=== PATIENT | male | born 1960 ===

== ENCOUNTER 2018-10-05 10:55 | Emergency (ER) | payer MEDICAID ==
[~2018-10-05] VITALS: Ht 177.8 cm; Wt 113.6 kg
[2018-10-05 10:58] VITALS: TEMP 97.4
[2018-10-05] MEDS ORDERED: COZAAR 25MG25 MG/TAB PO (11:31)
[2018-10-05] MEDS ORDERED: SYNTHROID0.075 MG/T PO (11:32)
[2018-10-05] MEDS ORDERED: PROZAC 20MG20 MG PO (11:32)
[2018-10-05 11:36] LABS: BASO # 0.1 (0.0-0.2); BASO % 0.7 % (0.0-2.0); EOS # 0.2 (0.0-0.7); GRAN % 68.7 % (42.2-75.2); HEMATOCRIT 42.4 % (42.0-52.0); HEMOGLOBIN 13.7 g/dl (13.5-18.0); LYMPH # 2.3 (1.2-3.4); LYMPH % 19.7 % (20.0-51.0); MEAN CELL VOLUME 86 fl (80.0-100.0); MEAN CORPUSCULAR HEMOGLOBIN 28 pg (27.0-31.0); MEAN CORPUSCULAR HGB CONC 32 g/dl (33.0-37.0); MEAN PLATELET VOLUME 10.6 fl (7.4-10.4); MONO % 8.2 % (1.7-9.3); PLATELET COUNT 239 K/mm3 (130-400); RED BLOOD COUNT 4.94 M/mm3 (4.20-5.60); REDCELL DISTRIBUTION WIDTH-CV 14.6 % (11.5-14.5)
[2018-10-05 11:47] LABS: ALBUMIN 4.5 gm/dL (3.5-5.0); BILIRUBIN,TOTAL 0.6 mg/dL (0.0-1.0); CALCIUM 9.6 mg/dL (8.4-10.2); CREATININE, serum 0.83 (0.66-1.25); POTASSIUM 4.1 mmol/L (3.4-5.0); TOTAL PROTEIN 7.5 gm/dL (6.4-8.2)
[2018-10-05] MEDS ORDERED: COZAAR 50MG50 MG/TAB PO (12:17)
[2018-10-05 12:30] VITALS: BP 173/106; PULSE 60
== END 2018-10-05 12:31 | disposition home or self-care (01) ==
LOC: COL.ER 10:55
PROVIDERS: Family Medicine
DX: H81.22 Vestibular neuronitis, left ear (principal); I10 Essential (primary) hypertension

== ENCOUNTER → 2020-05-15 | Outpatient (CLI) | payer MEDICAID ==
[~2020-05-15] MED LIST: COZAAR 25MG25 MG/TAB PO; COZAAR 50MG50 MG/TAB PO; PROZAC 20MG20 MG PO; SYNTHROID0.075 MG/T PO
== END ==
LOC: ZCOL.LAB 20:05
DX: H92.12 Otorrhea, left ear (principal)